=== PATIENT | female | born 1970 | race Caucasian/White ===

== ENCOUNTER 2016-12-07 10:25 | Emergency (ER) | payer BC, OTHER ==
[2016-12-07 10:40] VITALS: BP 133/77
--- NOTE | 2016-12-07 11:24 | UC ---
Epistaxis Nasal HPI - HPI Summary HPI Summary: two nosebleeds today, the second one quite intense. Bled hard for 15-20 minutes. She had clots and vomited some blood afterwards. She has a long history of nosebleeds, usually just last a few minutes. For past 6 months, gets a nosebleed every 2 weeks or so. When she gets one, she pinches the BONY part of her nose and uses tissues up her nose. No hypertension. No clotting disorders. Was once told her blood counts "were off", but then they were normal again and nothing was suggested to her about it. No recent URI or fever. No recent nasal trauma. Did take two excedrin tabs last night for headache - History of Current Complaint Chief Complaint: UCGeneralIllness Stated Complaint: NOSE BLEED Time Seen by Provider: 12/07/16 10:48 Hx Obtained From: Patient Onset/Duration: Sudden Onset, Lasting Minutes - 15-20 Severity Initially: Moderate Severity Currently: None Character: Heavy Aggravating Factor(s): Nothing Alleviating Factor(s): Pressure - though she describes pinching the bone, so doubtful it helped Associated Signs And Symptoms: Positive: Negative - Allergies/Home Medications Allergies/Adverse Reactions: Allergies Allergy/AdvReac Type Severity Reaction Status Date / Time Ciprofloxacin [From Cipro] Allergy Palpitation Verified 12/07/16 10:35 s Home Medications: Home Medications [id number] [Excedrin Migraine] 2 tab PO ONCE PRN 12/07/16 [ History Confirmed 12/07/16] PMH/Surg Hx/FS Hx/Imm Hx Previously Healthy: Yes - Surgical History Surgical History: Yes Surgery Procedure, Year, and Place: ablation. tubal ligation - Family History Known Family History: Negative: Blood Disorder - no known blood disorders in family - Social History Alcohol Use: None Substance Use Type: None Smoking Status (MU): Former Smoker When Did the Patient Quit Smoking/Using Tobacco: 5 years ago Review of Systems Constitutional: Negative Skin: Negative Eyes: Negative ENT: Nasal Discharge - nosebleed Respiratory: Negative Cardiovascular: Negative Gastrointestinal: Negative Genitourinary: Negative Motor: Negative Neurovascular: Negative Musculoskeletal: Negative Neurological: Negative Psychological: Negative All Other Systems Reviewed And Are Negative: Yes Physical Exam Triage Information Reviewed: Yes Appearance: Well-Appearing, No Pain Distress, Well-Nourished Vital Signs: Initial Vital Signs Temp 98.3 F 12/07/16 10:35 Pulse 84 12/07/16 10:35 Resp 16 12/07/16 10:35 BP 133/77 12/07/16 10:35 Pulse Ox 98 12/07/16 10:35 Vital Signs Reviewed: Yes Eye Exam: Normal Eyes: Positive: Conjunctiva Clear ENT: Positive: Hearing grossly normal, Pharynx normal, Nasal congestion, TMs normal, Other: - cracked mucosa with recent bleeding left septum about 1/2" from naris; right side also looks eroded on septum. Negative: Nasal drainage, Tonsillar swelling, Tonsillar exudate, Trismus, Muffled/hoarse voice Neck exam: Normal Neck: Positive: Supple Respiratory Exam: Normal Cardiovascular Exam: Normal Musculoskeletal Exam: Normal Neurological Exam: Normal Psychological Exam: Normal Skin Exam: Normal - no petechiae Epistaxis Nasal Course/Dx - Differential Dx/Diagnosis Differential Diagnosis/HQI/PQRI: Epistaxis, Sinusitis Provider Diagnoses: epistaxis Discharge - Discharge Plan Condition: Stable Disposition: HOME Patient Education Materials: Nosebleed (ED) Referrals: Milad Nuñez MD [Medical Doctor] - Armen Valentin [Primary Care Provider] - Additional Instructions: When you get a nosebleed, pinch the soft part of the nose tightly for 10 full minutes. This will usually stop the bleeding. Another trick if you can't get it to stop is to blow out the clots, then pinch for a few minutes, then spray two sprays of [place]-Synephrine up the side that is bleeding, and pinch for 10 minutes. Moisturize the air in your house and bedroom as much as possible. Some Vaseline around the exit of your nose can help. Avoid aspirin-containing products. Tylenol won't make the bleeding worse. Motrin will make the bleeding a bit worse, but not as bad as aspirin. It might be valuable to talk to an ENT about your recurrent nosebleeds to see if there is anything that can be done (Dr. Nuñez)
[2016-12-07 13:29] LABS: Hematocrit 41 % (35-47); Hemoglobin 14.2 g/dl (12.0-16.0); Mean Corpuscular HGB Conc 34 g/dl (31-36); Mean Corpuscular Hemoglobin 30 pg (27-31); Mean Corpuscular Volume 87 fL (80-97); Mean Platelet Volume 8 um3 (7.4-10.4); Red Blood Count 4.78 10^6/ul (4.0-5.4); Red Cell Distribution Width 13 % (10.5-15); White Blood Count 7.4 10^3/ul (3.5-10.8)
== END 2016-12-07 11:34 | disposition home or self-care (01) ==
LOC: UCCORT 10:25
DX: R04.0 Epistaxis (principal); Z88.1 Allergy status to other antibiotic agents; Z87.891 Personal history of nicotine dependence
CPT/HCPCS: 36415; 85025; 85610; 85730; 99201; G0463

== ENCOUNTER 2017-09-03 16:16 | Emergency (ER) | payer OTHER ==
[2017-09-03 16:59] VITALS: BP 148/84
--- NOTE | 2017-09-03 17:05 | UC ---
Eye Complaint HPI - HPI Summary HPI Summary: 47 year old female presents with left eye pain after gettign shampoo in it last night. - History of Current Complaint Chief Complaint: UCEye Stated Complaint: LEFT EYE COMPLAINT Time Seen by Provider: 09/03/17 17:05 Hx Obtained From: Patient Hx Last Menstrual Period: ABLATION Onset/Duration: Sudden Onset Timing: Constant Severity Initially: Moderate Severity Currently: Moderate Pain Scale Used: 0-10 Numeric - 5 - Allergies/Home Medications Allergies/Adverse Reactions: Allergies Allergy/AdvReac Type Severity Reaction Status Date / Time Ciprofloxacin [From Cipro] Allergy Palpitation Verified 09/03/17 16:59 s Home Medications: Home Medications Qlqktnfk-Kqduckiqvgpf-Wubukzjj [Visine Tears] 1 elizabeth OP DAILY 09/03/17 [History Confirmed 09/03/17] Ibuprofen TAB* [Motrin TAB* 800 MG] 800 mg PO Q6H PRN 09/03/17 [History Confirmed 09/03/17] PMH/Surg Hx/FS Hx/Imm Hx Previously Healthy: Yes - Surgical History Surgical History: Yes Surgery Procedure, Year, and Place: ablation. tubal ligation - Family History Known Family History: Negative: Blood Disorder - no known blood disorders in family - Social History Alcohol Use: Occasionally Substance Use Type: None Smoking Status (MU): Former Smoker When Did the Patient Quit Smoking/Using Tobacco: 5 years ago Review of Systems Constitutional: Negative Skin: Negative Eyes: Eye Redness ENT: Negative Respiratory: Negative Cardiovascular: Negative Gastrointestinal: Negative Genitourinary: Negative Motor: Negative Neurovascular: Negative Musculoskeletal: Negative Neurological: Negative Psychological: Negative All Other Systems Reviewed And Are Negative: Yes Physical Exam Triage Information Reviewed: Yes Vital Signs: Initial Vital Signs Temp 36.7 C 09/03/17 16:53 Pulse 88 09/03/17 16:53 Resp 14 09/03/17 16:53 BP 148/84 09/03/17 16:53 Pulse Ox 100 09/03/17 16:53 Vital Signs Reviewed: Yes Eyes: Positive: Conjunctiva Inflamed ENT Exam: Normal Dental Exam: Normal Neck exam: Normal Neck: Positive: 1 Respiratory Exam: Normal Cardiovascular Exam: Normal Abdominal Exam: Normal Musculoskeletal Exam: Normal Neurological Exam: Normal Psychological Exam: Normal Skin Exam: Normal Eye Complaint Course/Dx - Differential Dx/Diagnosis Provider Diagnoses: left eye pain. corneal abrasion Discharge - Discharge Plan Condition: Stable Disposition: HOME Prescriptions: LoraTADine TAB(NF) [Claritin 10 MG TAB(NF)] 10 mg PO DAILY #30 tab Tobramycin 0.3% OPHTH.DEON* 1 drop LEFT EYE Q4H #1 btl predniSONE TAB* [Deltasone TAB*] 20 mg PO DAILY #5 tab Patient Education Materials: Corneal Abrasion (ED) Referrals: Feliciano Tapia MD [Medical Doctor] - Armen Valentin [Primary Care Provider] -
[2017-09-03] MEDS ORDERED: Fluorescein Sodium TOPICAL* 1 MG TEST OPHTHALMIC ONE (17:09)
[2017-09-03] MEDS ORDERED: Tetracaine 0.5% OPTH.SOL 4 ML* 1 DROP BTL LEFT EYE ONE (17:09)
[2017-09-03] MEDS ORDERED: BSS OPTH.SOL* BTL ONE (17:10)
[2017-09-03] MEDS ORDERED: Fluorescein Sodium TOPICAL* 1 MG TEST ONE (17:10)
[2017-09-03] MEDS ORDERED: Tetracaine 0.5% OPTH.SOL 4 ML* 1 DROP BTL ONE (17:10)
== END 2017-09-03 17:36 | disposition home or self-care (01) ==
LOC: UCCORT 16:16
DX: H57.8 Other specified disorders of eye and adnexa (principal); Z88.1 Allergy status to other antibiotic agents
CPT/HCPCS: 99212; A9270-GY; G0463